=== PATIENT | male | born 1950 | race Caucasian/White ===

== ENCOUNTER 2018-04-08 11:36 | Emergency (ER) | payer OTHER ==
[2018-04-08] MEDS ORDERED: fentaNYL 100 MCG/2 ML INJ ONE (12:11)
[2018-04-08] MEDS ORDERED: fentaNYL 100 MCG/2 ML INJ IVP ONE ×2 (12:18)
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
[2018-04-08] MEDS ORDERED: OXYCODONE/APAP 5/325 TAB PO ONE (12:43)
[2018-04-08] MEDS ORDERED: LET GEL TOPICAL 1 EA SYR TP ONE (12:51)
[2018-04-08 14:06] VITALS: BP 139/80
== END 2018-04-08 14:05 | disposition home or self-care (01) ==
DX: S42.022A Displaced fracture of shaft of left clavicle, initial encounter for closed fracture (principal); S63.501A Unspecified sprain of right wrist, initial encounter; T14.8XXA Other injury of unspecified body region, initial encounter; V18.0XXA Pedal cycle driver injured in noncollision transport accident in nontraffic accident, initial encounter; Y93.55 Activity, bike riding; Y99.8 Other external cause status; M11.231 Other chondrocalcinosis, right wrist
CPT/HCPCS: 73030; 73110; 96374; 99284; A4565; J3010; L3807